=== PATIENT | female | born 1960 | race Two or more races ===

== ENCOUNTER 2017-01-02 16:12 | Observation (INO) | payer SELFPAY ==
[~2017-01-02 16:12] MED LIST: ANTARA130 MG; ASPIR 8181 M1 PO; ASPIR-LOW81 MG PO; ASPIRIN EC325 MG PO; ASPIRIN LOW STR81 MG; ATIVAN0.5 MG PO; COREG PO; COREG12.5 M1 PO; COREG12.5 MG PO; COREG6.25 MG PO; CRESTOR20 MG PO; CRESTOR40 MG PO; FUROSEMIDE20 MG; GLUCOPHAGE500 MG; HUMALOG100 U/ML SQ; IMDUR PO; IMDUR30 MG; IMDUR30 MG PO; ISOSORBIDE MONO30 M4 PO; ISOSORBIDE MONO30 MG; Imdur PO; JANUVIA; JANUVIA100 MG; LANTUS SOL100 UNIT/1 SC; LANTUS100 U/ML SC; LEVEMIR FL100 UNIT/2 SQ; LIPITOR40 M1 PO; LISINOPRIL5 M1 PO; LISINOPRIL5 MG; LISINOPRIL5 MG PO; METOPROLOL TART25 MG PO; NITROGLYCERIN0.4 M1 SL; NITROGLYCERIN0.4 M2 SL; NOVOLOG FL100 UNIT/2 SC; PEPCID20 M1 PO; PEPCID20 MG PO; PERCOCET 5/3251 TAB PO; PLAVIX75 MG PO; PROTONIX20 M2 PO; RANEXA500 M1 PO; RANEXA500 MG PO; SIMVASTATIN20 MG PO; SITAGLIPTIN; TOPROL XL25 MG; ZESTRIL2.5 M1; ZOCOR20 MG
[2017-01-02 16:45] LABS: BASO % 0.2 % (0-2); EOS % 1.6 % (0-7); EOSINOPHIL ABSOLUTE COUNT 0.1 tho/cmm (0.0-0.7); HCT-HEMATOCRIT 38.9 % (34.0-49.0); HGB-HEMOGLOBIN 13.9 gm/dl (12.0-15.5); IMMATURE GRANULOCYTES ABSOLUTE 0.01 tho/cmm (0-0.03); IMMATURE GRANULOCYTES PERCENT 0.2 % (0-0.3); LYMPH % 42.7 % (20-45); LYMPH ABSOLUTE COUNT 2.4 tho/cmm (0.8-4.5); MCHC MEAN CORPUSCULAR HGB CONC 35.7 % (32.0-36.0); MCV (MEAN CELL VOLUME) 89.4 fl (82.0-96.0); MEAN PLATELET VOLUME 11.8 cmc (9.4-12.4); MONO % 5.5 % (0-12); MONOCYTE ABSOLUTE COUNT 0.3 tho/cmm (0.0-1.2); NEUTROPHIL ABSOLUTE COUNT 2.8 tho/cmm (1.6-8.0); NEUTROPHIL-AUTOMATED 2.8 tho/cmm (1.6-8.0); NEUTROPHILS % 49.8 % (40-80); PLATELET COUNT 109 tho/cmm (150-450); RED BLOOD COUNT 4.35 mil/cmm (4.00-5.20); RED CELL DISTRIBUTION WIDTH 13.4 % (12.4-16.4); WHITE BLOOD COUNT 5.6 tho/cmm (4.0-10.0)
[2017-01-02 17:03] LABS: ANION GAP 10 mmol/L (0-20); BLOOD UREA NITROGEN 14 mg/dl (6-24); CALCIUM 8.6 mg/dl (8.5-10.5); CARBON DIOXIDE-VENOUS 27 mmol/L (22-32); CHLORIDE 108 mmol/l (96-110); CREATININE 0.57 mg/dl (0.50-1.10); GLUCOSE 92 mg/dL (70-110); POTASSIUM 3.7 mmol/L (3.7-5.1); SODIUM 141 mmol/L (135-145); eGFR VALUE FOR BLACK >90 mL/Min
[2017-01-02] MEDS ORDERED: VITAMIN D250000 UNI1 PO (17:45)
[2017-01-02] MEDS ORDERED: HUMALOG100 UNITS/ SC (17:48)
== END 2017-01-03 15:20 ==
LOC: EDMED 16:12 → EMR2 19:38 → CAR1 19:39
PROVIDERS: Emergency Medicine; Nurse Practitioner Family; ADMIT Internal Medicine
DX: R07.9 Chest pain, unspecified (principal); I25.10 Atherosclerotic heart disease of native coronary artery without angina pectoris; E11.649 Type 2 diabetes mellitus with hypoglycemia without coma; I10 Essential (primary) hypertension; E78.5 Hyperlipidemia, unspecified; Z79.4 Long term (current) use of insulin; Z79.82 Long term (current) use of aspirin; Z79.899 Other long term (current) drug therapy; Z82.49 Family history of ischemic heart disease and other diseases of the circulatory system; Z90.49 Acquired absence of other specified parts of digestive tract; Z90.710 Acquired absence of both cervix and uterus; Z95.5 Presence of coronary angioplasty implant and graft
CPT/HCPCS: A9500; C8929; G0378; J1815; J2405; J2785